=== PATIENT | female | born 1990 | race Caucasian/White ===

== ENCOUNTER 2017-01-14 20:47 | Emergency (ER) | payer BC, OTHER ==
[~2017-01-14] VITALS: Ht 167.6 cm; Wt 89.0 kg
[~2017-01-14 20:47] MED LIST: birth control
[2017-01-14 21:14] VITALS: Ht 167.6 cm; Wt 89.0 kg
[2017-01-14] MEDS ORDERED: AMOX1TAB10 PO (22:44)
[2017-01-14] MEDS ORDERED: FLUT9.9S NASAL (22:44)
--- NOTE | 2017-01-14 22:47 | ERD ---
ER Documentation Chief Complaint Date/Time DATE: 01/14/17 TIME: 22:45 Chief Complaint HERNANDEZ and fever with Nasal congestion HPI This is a 26-year-old female who presents with 2 weeks of headache, nasal congestion, and ear pain. She also states she has had fever intermittently. She has been taking asac-ljw-[id number] Mucinex, Zyrtec and Tylenol but continues to have symptoms. Denies any nausea vomiting diarrhea. ROS All systems reviewed and are negative except as per history of present illness. Medications Home Meds Active Scripts Fluticasone Propionate (Flonase Allergy Relief) 9.9 Ml [place].susp, 1 SPRAY NASAL BID, #1 BOTTLE TO EACH NOSTRIL Prov:JOHN LAKE PA-C 01/14/17 Amoxicillin/Potassium Clav (Amox-Clav 875-125 mg Tablet) 875-125 mg Tab, 1 TAB PO BID for 10 Days, #20 TAB Prov:JOHN LAKE PA-C 01/14/17 Reported Medications [ control] No Conflict Check 01/28/13 Allergies Allergies: Coded Allergies: No Known Allergy (Unverified , 04/04/14) PMhx/Soc Medical and Surgical Hx: pt denies Medical Hx, pt denies Surgical Hx Hx Alcohol Use: No Hx Substance Use: No Hx Tobacco Use: No Smoking Status: Never smoker FmHx Family History: No diabetes Physical Exam Vitals Vital Signs Date Time Temp Pulse Resp B/P Pulse Ox O2 Delivery O2 Flow Rate FiO2 01/14/17 21:14 98.9 112 20 154/74 99 Physical Exam General: well developed, well nourished, alert, nontoxic, no distress Head: normocephalic, atraumatic Neck: Supple, nontender, no lymphadenopathy, no midline tenderness Ears: no tenderness over mastoids bilaterally, TMs nonerythematous, no exudates in canal Oropharynx: no tonsilar erythema or edema, uvula midline, no exudates, no kissing tonsils, no drooling Respiratory: Clear to auscaultation bilaterally, speaks in full sentences, no use of accesory muscles or labored breathing, no rales, ronchi, or wheezing Cardiovascular: RRR, No murmurs GI: soft, non tender, non distended, negative murphys sign, negative mcburneys point tenderness Procedures/MDM This is a 18-year-old female who presents with 2 weeks of sinus congestion and sinus pressure with intermittent subjective fevers. Exam is normal at this time and she is afebrile however she has already tried several oxml-qni-ckobugk medications and given this is already been going on for 2 weeks I will give her a course of antibiotics to try and Flonase nasal inhaler. Recommended this patient follow up with her primary care doctor within 48 hours or return to the emergency room for any worsening of symptoms. However this time I do believe there is suitable for outpatient management. I answered all their questions and they agreed with the plan and were discharged home. Departure Diagnosis: Primary Impression: Sinusitis Condition: Stable Patient Instructions: Sinusitis, Abx Tx Additional Instructions: Call your primary care doctor TOMORROW for an appointment during the next 1-2 days.See the doctor sooner or return here if your condition worsens before your appointment time. JOHN LAKE PA-C January 14, 2017 22:47
[2017-01-14 22:50] VITALS: BP 110/69; PULSE 75; RESP 18; TEMP 98.6
== END 2017-01-14 22:50 | disposition home or self-care (01) ==
LOC: FTE 20:47
DX: J32.9 Chronic sinusitis, unspecified (principal)
CPT/HCPCS: 99283